=== PATIENT | female | born 1975 | race American Indian/Alaskan Native ===

== ENCOUNTER 2017-01-11 20:29 | Emergency (ER) | payer BC ==
--- NOTE | 2017-01-11 21:11 | Emergency Department Report ---
ED Lower Extremity HPI - General Chief Complaint: Extremity Problem,Nontraumatic Stated Complaint: GOUT Time Seen by Provider: 01/11/17 21:03 Source: patient, family Mode of arrival: Ambulatory Limitations: No Limitations - History of Present Illness Initial Comments: Patient complains of right great toe pain. On the 2016. Patient said she went to her primary care physician and had x-ray done and that she has gouty arthritis. She said she has been treated with gout medication to include Indocin , colcrys, and steroid injection. Pain is 9/10 and throbbing. She is on allopurinol for maintenance. Patient is morbidly obese and does not follow gout diet. She denies any injury and does not have h/o diabetes. BP is 183/110 and denies sob, cp. headache or visual difficulties. She take lisinopril and triaterene/hctz but only took lisinopril today. Denies fever or chills MD Complaint: other (Rt great toe pain and swelling) Onset/Timin -: month(s) Injury: Toes: Right (pain and swellin at rt great toe) Type of Injury: other (Gout flare) Place: home Severity: severe Severity scale (0 -10): 9 Improves With: rest Worsens With: weight bearing, movement, palpation Context: other (Gout) Associated Symptoms: swelling, ambulatory. denies: snap/pop sensation, numbness , tingling, unable to bear weight, able to partially bear weight Treatments Prior to Arrival: NSAIDS - Related Data Home Medications Medication Instructions Recorded Confirmed Last Taken Ferrous Sulfate [Iron Supplement 1 tab PO DAILY 03/08/14 01/11/17 01/11/17 325 Mg tab] Lisinopril 1 tab PO DAILY 03/08/14 01/11/17 01/11/17 Triamterene/Hydrochlorothiazid 1 tab PO DAILY 03/08/14 01/11/17 2 Days Ago [Triamterene-Hctz 75-50 mg] Previous Rx's Medication Instructions Recorded Last Taken Type Colchicine [Colcrys] 0.6 mg PO BID PRN #10 tab 01/11/17 Unknown Rx Indomethacin [Indocin] 25 mg PO Q8H PRN #12 capsule 01/11/17 Unknown Rx predniSONE [Deltasone] 50 mg PO QDAY #5 tab 01/11/17 Unknown Rx Allergies Allergy/AdvReac Type Severity Reaction Status Date / Time No Known Allergies Allergy Verified 03/08/14 14:53 ED Review of Systems ROS: Stated complaint: GOUT Other details as noted in HPI Comment: All other systems reviewed and negative Constitutional: denies: chills, fever Respiratory: no symptoms reported Cardiovascular: denies: chest pain, palpitations, edema, syncope Gastrointestinal: denies: nausea, vomiting Musculoskeletal: joint swelling, arthralgia. denies: back pain, myalgia Skin: denies: rash Neurological: denies: headache, weakness, numbness, paresthesias, confusion, abnormal gait, vertigo ED Past Medical Hx - Past Medical History Previous Medical History?: Yes Hx Hypertension: Yes (X4YRS) Hx Asthma: Yes Hx COPD: No Hx HIV: No - Surgical History Past Surgical History?: Yes Additional Surgical History: right ankle - Family History Family history: hypertension - Social History Smoking Status: Never Smoker Substance Use Type: None - Medications Home Medications: Home Medications Medication Instructions Recorded Confirmed Last Taken Type Ferrous Sulfate [Iron Supplement 1 tab PO DAILY 03/08/14 01/11/17 01/11/17 History 325 Mg tab] Lisinopril 1 tab PO DAILY 03/08/14 01/11/17 01/11/17 History Triamterene/Hydrochlorothiazid 1 tab PO DAILY 03/08/14 01/11/17 2 Days Ago History [Triamterene-Hctz 75-50 mg] Colchicine [Colcrys] 0.6 mg PO BID PRN #10 tab 01/11/17 Unknown Rx Indomethacin [Indocin] 25 mg PO Q8H PRN #12 capsule 01/11/17 Unknown Rx predniSONE [Deltasone] 50 mg PO QDAY #5 tab 01/11/17 Unknown Rx ED Physical Exam - General Limitations: No Limitations General appearance: alert, in no apparent distress - Head Head exam: Present: atraumatic, normocephalic, normal inspection - Neck Neck exam: Present: normal inspection, full ROM. Absent: tenderness, meningismus - Respiratory Respiratory exam: Present: normal lung sounds bilaterally. Absent: respiratory distress, chest wall tenderness - Cardiovascular Cardiovascular Exam: Present: regular rate, normal rhythm, normal heart sounds - GI/Abdominal GI/Abdominal exam: Present: soft, normal bowel sounds. Absent: distended, tenderness, guarding, rebound, rigid - Extremities Exam Extremities exam: Present: normal inspection, full ROM, normal capillary refill , joint swelling. Absent: pedal edema, calf tenderness - Expanded Lower Extremity Exam Right Hip exam: Present: normal inspection, full ROM, pelvic stability. Absent: tenderness, swelling, abrasion, laceration, ecchymosis, deformity, crepidus, dislocation, erythema, external rotation, internal rotation, shortening Upper Leg exam: Present: normal inspection, full ROM. Absent: tenderness, swelling, abrasion, laceration, ecchymosis, deformity, crepidus, dislocation, erythema Knee exam: Present: normal inspection, full ROM, full knee extension. Absent: tenderness, swelling, abrasion, laceration, ecchymosis, deformity, crepidus, dislocation, erythema, effusion, pain w/ pronation/supination Lower Leg exam: Present: normal inspection, full ROM. Absent: tenderness, swelling, abrasion, laceration, ecchymosis, deformity, crepidus, dislocation, erythema, palpable cord, Ken's sign Ankle exam: Present: normal inspection, full ROM. Absent: tenderness, swelling , abrasion, laceration, ecchymosis, deformity, crepidus, dislocation, erythema Foot/Toe exam: Present: full ROM, tenderness (Rt great toe), swelling (Rt great toe). Absent: normal inspection, abrasion, laceration, ecchymosis, deformity, crepidus, dislocation, erythema, amputation, puncture wound, foreign body, calcaneal tenderness, tenderness at base of 5th metatarsal, nail avulsion, subungual hematoma Neuro vascular tendon exam: Present: no vascular compromise, significant pain with passive ROM of distal joint. Absent: pulse deficit, abnormal cap refill, motor deficit, sensory deficit, tendon deficit, extremity cold to touch, pallor , abnormal 2-point discrimination, decreased fine/light touch, foot drop, peroneal nerve deficit Gait: Positive: observed and limited by pain - Back Exam Back exam: Present: normal inspection, full ROM. Absent: tenderness - Neurological Exam Neurological exam: Present: alert, oriented X3, normal gait, reflexes normal. Absent: motor sensory deficit - Psychiatric Psychiatric exam: Present: normal affect, normal mood - Skin Skin exam: Present: warm, dry, intact, normal color. Absent: rash ED Course Vital Signs 01/11/17 01/11/17 01/11/17 20:34 20:35 21:37 Temperature 99.2 F 99.2 F Pulse Rate 108 H 108 H Respiratory 22 22 Rate Blood Pressure 183/110 183/110 Blood Pressure 183/110 [Right] O2 Sat by Pulse 99 99 Oximetry 01/11/17 22:48 Temperature Pulse Rate 74 Respiratory 20 Rate Blood Pressure Blood Pressure 120/72 [Right] O2 Sat by Pulse 97 Oximetry - Reevaluation(s) Reevaluation #1: 01/11/17 21:52 Patient given colcrys 1.2 mg po, decadron 10 mg and dilaudid 1 mg im, zofran 8 mg ODT in ed. She was also given clonidine 0.2 mg po for elevated bp. Will recheck Reevaluation #2: 01/11/17 23:09 Patient vital signs are stabilized.Pain better at 3/10 ED Lower Extremity MDM - Medical Decision Making ED Course: Patient here for "flareup gout and had elevated bp. She was given colcrys 1.2 mg po, decadron 10 mg and dilaudid 1 mg im, zofran 8 mg ODT in ed. She was also given clonidine 0.2 mg po for elevated bp. Patient is better. I discussed with her she will need to follow up with her pcp in 2 days and to avoid foods high in purine. Patient discharge home with family with prescription for indocin and steroids. Critical care attestation.: If time is entered above; I have spent that time in minutes in the direct care of this critically ill patient, excluding procedure time. ED Disposition Clinical Impression: Elevated blood pressure reading in office with diagnosis of hypertension, Arthralgia of right foot Gout flare Qualifiers: Gout site: foot Gout etiology: unspecified cause Laterality: right Qualified Code(s): M10.9 - Gout, unspecified Disposition: DC-01 TO HOME OR SELFCARE Is pt being admited?: No Does the pt Need Aspirin: No Condition: Stable Instructions: Hypertension (ED), Arthralgia (ED), Acute Gouty Arthritis (ED), Low Purine Diet (ED) Additional Instructions: Please follow up with pcp in 2 days Take medication as pprescribes. Increase fluid intake Avoid food that is high in Purine. refe to discharge info paper work Prescriptions: Colchicine [Colcrys] 0.6 mg PO BID PRN #10 tab PRN Reason: GOUT PAIN Indomethacin [Indocin] 25 mg PO Q8H PRN #12 capsule PRN Reason: GOUT predniSONE [Deltasone] 50 mg PO QDAY #5 tab Referrals: PRIMARY CARE, [Primary Care Provider] - 01/13/17 Forms: Accompanied Note, Work/School Release Form(ED)
[2017-01-11] MEDS ORDERED: ZOFRAN ODT PO ONE (21:14)
[2017-01-11] MEDS ORDERED: DECADRON IM STA (21:14)
[2017-01-11] MEDS ORDERED: DILAUDID IV ONE (21:14)
[2017-01-11] MEDS ORDERED: CATAPRES PO ONE (21:14)
[2017-01-11] MEDS ORDERED: COLCRYS PO ONE (21:15)
[2017-01-11] MEDS ORDERED: DECADRON ONE (21:22)
[2017-01-11 22:48] VITALS: BP 120/72
== END 2017-01-11 23:26 | disposition home or self-care (01) ==
LOC: ED 20:29
DX: M10.071 Idiopathic gout, right ankle and foot (principal); I10 Essential (primary) hypertension; J45.909 Unspecified asthma, uncomplicated
CPT/HCPCS: 96372; 96374; 99283; J1100; J1170; Q0162

== ENCOUNTER 2017-02-11 19:15 | Emergency (ER) | payer BC ==
[2017-02-11] MEDS ORDERED: DECADRON IM ONE (23:19)
[2017-02-11] MEDS ORDERED: TORADOL IM ONE (23:19)
--- NOTE | 2017-02-11 23:22 | Emergency Department Report ---
HPI - General Chief Complaint: Extremity Injury, Lower Time Seen by Provider: 02/11/17 23:12 - HPI HPI: This is a 41-year-old female presents to ED complaining of right side and hip pain radiates to her thighs. Patient states this has been going on for the past year. Patient states it is December she was diagnosed with gout and was told she needed to take indomethacin and colchicine. Patient states she ran out of her medication. Patient denies any fever, joint swelling or pain other than specified. ED Past Medical Hx - Past Medical History Previous Medical History?: Yes Hx Hypertension: Yes (X4YRS) Hx Asthma: Yes Hx COPD: No Hx HIV: No - Surgical History Past Surgical History?: Yes Additional Surgical History: right ankle - Social History Smoking Status: Never Smoker Substance Use Type: Prescribed - Medications Home Medications: Home Medications Medication Instructions Recorded Confirmed Last Taken Type Ferrous Sulfate [Iron Supplement 1 tab PO DAILY 03/08/14 01/11/17 01/11/17 History 325 Mg tab] Lisinopril 1 tab PO DAILY 03/08/14 01/11/17 01/11/17 History Triamterene/Hydrochlorothiazid 1 tab PO DAILY 03/08/14 01/11/17 2 Days Ago History [Triamterene-Hctz 75-50 mg] Colchicine [Colcrys] 0.6 mg PO BID PRN #10 tab 01/11/17 Unknown Rx predniSONE [Deltasone] 50 mg PO QDAY #5 tab 01/11/17 Unknown Rx Indomethacin [Indocin] 25 mg PO Q8H PRN #12 capsule 02/11/17 Unknown Rx Meloxicam [Mobic] 15 mg PO DAILY #30 tablet 02/11/17 Unknown Rx traMADol [Ultram] 50 mg PO Q6HR PRN #20 tablet 02/11/17 Unknown Rx ED Review of Systems ROS: Stated complaint: NUMBNESS IN RT FOOT, PAIN IN BUTTOCK Other details as noted in HPI Constitutional: denies: chills, fever Eyes: denies: eye pain, eye discharge, vision change ENT: denies: ear pain, throat pain Respiratory: denies: cough, shortness of breath, wheezing Cardiovascular: denies: chest pain, palpitations Endocrine: no symptoms reported Gastrointestinal: denies: abdominal pain, nausea, diarrhea Genitourinary: denies: urgency, dysuria, discharge Musculoskeletal: back pain. denies: joint swelling, arthralgia Skin: denies: rash, lesions Neurological: denies: headache, weakness, paresthesias Psychiatric: denies: anxiety, depression Hematological/Lymphatic: denies: easy bleeding, easy bruising Physical Exam - Physical Exam Vital Signs: Vital Signs 02/11/17 19:47 Temperature 99 F Pulse Rate 113 H Respiratory 18 Rate Blood Pressure 166/101 Blood Pressure 166/101 [Right] O2 Sat by Pulse 100 Oximetry Physical Exam: GENERAL: Alert and oriented x3, no apparent distress, Normal Gait, atraumatic. HEAD: Head is normocephalic and a-traumatic. LUNGS: Symetrical with respiration, No wheezing, no rales or crackles, CTAB. HEART: S1, S2 present, regular rate and rhythm without murmur, no rubs, no gallops. Non tender to palpation ABDOMEN: No organomegaly was noted,Positive bowel sounds, soft, and non- distended. . Nontender to palpation on all Quadrants, NO CVA tenderness. EXTREMITIES/MUSCULOSKELETAL: No cyanosis, clubbing, rash, lesions or edema. Full ROM bilaterally. UE/LE Pulses 2+ bilaterally. LE and UE 5+ strength bilaterally, straight leg raise positive on the right side joints are intact, no edema no swelling of any of the joints in the lower extremities. No spinal tenderness NEUROLOGIC: The patient is cooperative with no focal neurologic deficits. Cranial nerves II through XII are grossly intact. Normal speech. Normal sensation in V1, V2, V3 bilaterally. Normal sensation in bilateral lower extremities, No loss of sensation, PSYCHIATRIC: Mood is congruent with affect, denies suicidal or homicidal ideations. SKIN: Warm and dry, No lesions, No ulceration or induration present. ED Course Vital Signs 02/11/17 19:47 Temperature 99 F Pulse Rate 113 H Respiratory 18 Rate Blood Pressure 166/101 Blood Pressure 166/101 [Right] O2 Sat by Pulse 100 Oximetry ED Medical Decision Making - Medical Decision Making 41-year-old female presents to ED with lumbar radiculopathy ED course: She received prednisone IM, Toradol and ED for pain Discussed patient to follow up with orthopedic and primary care physician. Patient states she took a blood pressure medication today and has no symptoms despite mildly elevated blood pressure Patient is in no acute distress or respiratory distress. Vital signs are normalized. Discussed the patient worsened symptoms. Return to the ED Critical care attestation.: If time is entered above; I have spent that time in minutes in the direct care of this critically ill patient, excluding procedure time. ED Disposition Clinical Impression: Lumbar radiculopathy Disposition: TO HOME OR SELFCARE Is pt being admited?: No Does the pt Need Aspirin: No Condition: Stable Instructions: Lumbar Radiculopathy (ED), Sciatica (ED) Prescriptions: Indomethacin [Indocin] 25 mg PO Q8H PRN #12 capsule PRN Reason: GOUT Meloxicam [Mobic] 15 mg PO DAILY #30 tablet traMADol [Ultram] 50 mg PO Q6HR PRN #20 tablet PRN Reason: Pain Referrals: PRIMARY CARE, [Primary Care Provider] - 3-5 Days PHILIPP CASTILLO MD [Staff Physician] - 3-5 Days MALKA CASPER MD [Staff Physician] - 3-5 Days Forms: Work/School Release Form Time of Disposition: 23:27
[2017-02-11 23:57] VITALS: BP 147/81
== END 2017-02-11 23:57 | disposition home or self-care (01) ==
LOC: ED 19:15
DX: M54.16 Radiculopathy, lumbar region (principal); I10 Essential (primary) hypertension; J45.909 Unspecified asthma, uncomplicated
CPT/HCPCS: 96372; 99282; J1100; J1885

== ENCOUNTER 2017-10-09 04:04 | Emergency (ER) | payer BC, OTHER ==
[2017-10-09 05:21] LABS: Hematocrit 36.2 % (30.3-42.9); Hemoglobin 11.7 gm/dl (10.1-14.3); Mean Corpuscular HGB Conc 32 % (30-34); Mean Corpuscular Volume 80 fl (79-97); Platelet Count 326 K/mm3 (140-440); Red Blood Count 4.53 M/mm3 (3.65-5.03); Red Cell Distribution Width 16.5 % (13.2-15.2)
[2017-10-09 05:22] LABS: Mean Corpuscular Hemoglobin 26 pg (28-32)
[2017-10-09 06:02] LABS: BUN/Creatinine Ratio 12; Blood Urea Nitrogen 11 mg/dL (7-17); Calcium 8.9 mg/dL (8.4-10.2); Hemolysis Index 25
[2017-10-09 06:26] LABS: Basophils # (Auto) 0.1 K/mm3 (0.0-0.1); Eosinophils # (Auto) 0.1 K/mm3 (0.0-0.4); Eosinophils % (Auto) 0.6 % (0.0-4.3); Monocytes # (Auto) 0.7 K/mm3 (0.0-0.8); Monocytes % (Auto) 5.2 % (0.0-7.3)
[2017-10-09 06:29] LABS: Lymphocytes # (Auto) 2.2 K/mm3 (1.2-5.4); Lymphocytes % (Auto) 15.9 % (13.4-35.0)
--- NOTE | 2017-10-09 07:01 | Emergency Department Report ---
ED General Adult HPI - General Chief complaint: Medical Clearance Stated complaint: MEDICAL CLEARANCE Time Seen by Provider: 10/09/17 07:00 Source: patient Mode of arrival: Stretcher Limitations: No Limitations - History of Present Illness Initial comments: Patient was sent from [facility] for evaluation of hypertension. The patient is already taking lisinopril. She arrives with transfer forms that state she has an anxiety disorder and paranoia. I do not see any specific blood pressure at [facility]. The patient's initial blood pressure was 160 systolic but the nurse reported to me on repeat it was about 185. Patient has no specific complaints. She had blood work sent prior to my arrival but not a urinalysis. Her white blood cell count was somewhat elevated 14.5. A urine specimen now pending. She is found to have a glucose of 150 which I assume was fasting. She did not take her lisinopril within the past 24 hours. -: Gradual Quality: other (no complaints of pain) Associated Symptoms: denies other symptoms - Related Data Home Medications Medication Instructions Recorded Confirmed Last Taken Ferrous Sulfate [Iron Supplement 1 tab PO DAILY 03/08/14 01/11/17 01/11/17 325 Mg tab] Lisinopril 1 tab PO DAILY 03/08/14 01/11/17 01/11/17 Triamterene/Hydrochlorothiazid 1 tab PO DAILY 03/08/14 01/11/17 2 Days Ago [Triamterene-Hctz 75-50 mg] ~01/09/17 Previous Rx's Medication Instructions Recorded Last Taken Type Colchicine [Colcrys] 0.6 mg PO BID PRN #10 tab 01/11/17 Unknown Rx predniSONE [Deltasone] 50 mg PO QDAY #5 tab 01/11/17 Unknown Rx Indomethacin [Indocin] 25 mg PO Q8H PRN #12 capsule 02/11/17 Unknown Rx Meloxicam [Mobic] 15 mg PO DAILY #30 tablet 02/11/17 Unknown Rx traMADol [Ultram] 50 mg PO Q6HR PRN #20 tablet 02/11/17 Unknown Rx Lisinopril [Zestril TAB] 5 mg PO QDAY #30 tablet 10/09/17 Unknown Rx Nitrofurantoin Monohyd/M-Cryst 100 mg PO BID #10 capsule 10/09/17 Unknown Rx [Macrobid 100 mg Capsule] metFORMIN [Glucophage] 500 mg PO BID #60 tablet 10/09/17 Unknown Rx Allergies Allergy/AdvReac Type Severity Reaction Status Date / Time No Known Allergies Allergy Verified 03/08/14 14:53 ED Review of Systems ROS: Stated complaint: MEDICAL CLEARANCE Other details as noted in HPI Constitutional: denies: chills, fever Eyes: denies: eye pain, eye discharge, vision change ENT: denies: ear pain, throat pain Respiratory: denies: cough, shortness of breath, wheezing Cardiovascular: denies: chest pain, palpitations Endocrine: no symptoms reported Gastrointestinal: denies: abdominal pain, nausea, diarrhea Genitourinary: denies: urgency, dysuria, discharge Musculoskeletal: denies: back pain, joint swelling, arthralgia Skin: denies: rash, lesions Neurological: denies: headache, weakness, paresthesias Psychiatric: anxiety, other (paranoia per the transfer record). denies: depression Hematological/Lymphatic: denies: easy bleeding, easy bruising ED Past Medical Hx - Past Medical History Hx Hypertension: Yes (X4YRS) Hx Asthma: Yes Hx COPD: No Hx HIV: No Additional medical history: MORBID OBESITY - Surgical History Additional Surgical History: right ankle - Social History Smoking Status: Never Smoker Substance Use Type: None - Medications Home Medications: Home Medications Medication Instructions Recorded Confirmed Last Taken Type Ferrous Sulfate [Iron Supplement 1 tab PO DAILY 03/08/14 01/11/17 01/11/17 History 325 Mg tab] Lisinopril 1 tab PO DAILY 03/08/14 01/11/17 01/11/17 History Triamterene/Hydrochlorothiazid 1 tab PO DAILY 03/08/14 01/11/17 2 Days Ago History [Triamterene-Hctz 75-50 mg] ~01/09/17 Colchicine [Colcrys] 0.6 mg PO BID PRN #10 tab 01/11/17 Unknown Rx predniSONE [Deltasone] 50 mg PO QDAY #5 tab 01/11/17 Unknown Rx Indomethacin [Indocin] 25 mg PO Q8H PRN #12 capsule 02/11/17 Unknown Rx Meloxicam [Mobic] 15 mg PO DAILY #30 tablet 02/11/17 Unknown Rx traMADol [Ultram] 50 mg PO Q6HR PRN #20 tablet 08/04/17 Unknown Rx Lisinopril [Zestril TAB] 5 mg PO QDAY #30 tablet 10/09/17 Unknown Rx Nitrofurantoin Monohyd/M-Cryst 100 mg PO BID #10 capsule 10/09/17 Unknown Rx [Macrobid 100 mg Capsule] metFORMIN [Glucophage] 500 mg PO BID #60 tablet 10/09/17 Unknown Rx ED Physical Exam - General Limitations: No Limitations General appearance: alert, in no apparent distress, obese - Head Head exam: Present: atraumatic, normocephalic - Eye Eye exam: Present: normal appearance. Absent: scleral icterus - ENT ENT exam: Present: mucous membranes moist - Neck Neck exam: Present: normal inspection - Respiratory Respiratory exam: Present: normal lung sounds bilaterally. Absent: respiratory distress - Cardiovascular Cardiovascular Exam: Present: regular rate, normal rhythm. Absent: systolic murmur, diastolic murmur, rubs, gallop - GI/Abdominal GI/Abdominal exam: Present: soft, normal bowel sounds. Absent: distended, tenderness, guarding, rebound, rigid - Extremities Exam Extremities exam: Present: normal inspection - Back Exam Back exam: Present: normal inspection - Neurological Exam Neurological exam: Present: alert, oriented X3, CN II-XII intact. Absent: motor sensory deficit - Psychiatric Psychiatric exam: Present: normal affect, normal mood - Skin Skin exam: Present: warm, dry, intact, normal color. Absent: rash ED Course Vital Signs 10/09/17 10/09/17 04:41 07:26 Temperature 98.3 F Pulse Rate 97 H Respiratory 20 Rate Blood Pressure 169/96 Blood Pressure 134/77 [Left] O2 Sat by Pulse 100 Oximetry ED Medical Decision Making - Lab Data Result diagrams: 10/09/17 04:57 10/09/17 04:57 Laboratory Results - last 24 hr 10/09/17 10/09/17 10/09/17 04:57 04:57 04:57 WBC RBC Hgb Hct MCV MCH MCHC RDW Plt Count Lymph % (Auto) Love % (Auto) Eos % (Auto) Baso % (Auto) Lymph # Love # Eos # Baso # Add Manual Diff Seg Neutrophils % Nucleated RBC % Seg Neutrophils # WBC Morphology Hypersegmented Neuts Hyposegmented Neuts Hypogranular Neuts Smudge Cells Toxic Granulation Toxic Vacuolation Dohle Bodies Pelger-Huet Anomaly Kumar Rods Platelet Estimate Clumped Platelets Plt Clumps, EDTA Large Platelets Giant Platelets Platelet Satelliting Plt Morphology Comment RBC Morphology Dimorphic RBCs Polychromasia Hypochromasia Poikilocytosis Anisocytosis Microcytosis Macrocytosis Spherocytes Pappenheimer Bodies Sickle Cells Target Cells Tear Drop Cells Ovalocytes Helmet Cells Delaney-Covel Bodies Grannis Rings [place] Cells Bite Cells Crenated Cell Elliptocytes Acanthocytes (Spur) Rouleaux Hemoglobin C Crystals Schistocytes Malaria parasites Christian Bodies Hem Pathologist Commnt Sodium 142 Potassium 3.6 Chloride 99.6 Carbon Dioxide 26 Anion Gap 20 BUN 11 Creatinine 0.9 Estimated GFR > 60 BUN/Creatinine Ratio 12 Glucose 146 H Calcium 8.9 HCG, Qual Salicylates < 0.3 L Acetaminophen < 5.0 L Plasma/Serum Alcohol 10/09/17 10/09/17 10/09/17 04:57 04:57 04:57 WBC 14.4 H RBC 4.53 Hgb 11.7 Hct 36.2 MCV 80 MCH 26 L MCHC 32 RDW 16.5 H Plt Count 326 Lymph % (Auto) 15.9 Love % (Auto) 5.2 Eos % (Auto) 0.6 Baso % (Auto) 1.0 Lymph # 2.2 Love # 0.7 Eos # 0.1 Baso # 0.1 Add Manual Diff Complete Seg Neutrophils % 77.3 H Nucleated RBC % Not Reportable Seg Neutrophils # 10.7 H WBC Morphology Not Reportable Hypersegmented Neuts Not Reportable Hyposegmented Neuts Not Reportable Hypogranular Neuts Not Reportable Smudge Cells Not Reportable Toxic Granulation Not Reportable Toxic Vacuolation Not Reportable Dohle Bodies Not Reportable Pelger-Huet Anomaly Not Reportable Kumar Rods Not Reportable Platelet Estimate Not Reportable Clumped Platelets Not Reportable Plt Clumps, EDTA Not Reportable Large Platelets Not Reportable Giant Platelets Not Reportable Platelet Satelliting Not Reportable Plt Morphology Comment Not Reportable RBC Morphology Not Reportable Dimorphic RBCs Not Reportable Polychromasia Not Reportable Hypochromasia Not Reportable Poikilocytosis Not Reportable Anisocytosis Not Reportable Microcytosis Not Reportable Macrocytosis Not Reportable Spherocytes Not Reportable Pappenheimer Bodies Not Reportable Sickle Cells Not Reportable Target Cells Not Reportable Tear Drop Cells Not Reportable Ovalocytes Not Reportable Helmet Cells Not Reportable Delaney-[place] Bodies Not Reportable Grannis Rings Not Reportable Ibeth Cells Not Reportable Bite Cells Not Reportable Crenated Cell Not Reportable Elliptocytes Not Reportable Acanthocytes (Spur) Not Reportable Rouleaux Not Reportable Hemoglobin C Crystals Not Reportable Schistocytes Not Reportable Malaria parasites Not Reportable Christian Bodies Not Reportable Hem Pathologist Commnt No Sodium Potassium Chloride Carbon Dioxide Anion Gap BUN Creatinine Estimated GFR BUN/Creatinine Ratio Glucose Calcium HCG, Qual Negative Salicylates Acetaminophen Plasma/Serum Alcohol < 0.01 Laboratory Results - last 24 hr 10/09/17 10/09/17 10/09/17 04:57 04:57 04:57 WBC RBC Hgb Hct MCV MCH MCHC RDW Plt Count Lymph % (Auto) Love % (Auto) Eos % (Auto) Baso % (Auto) Lymph # Love # Eos # Baso # Add Manual Diff Seg Neutrophils % Nucleated RBC % Seg Neutrophils # WBC Morphology Hypersegmented Neuts Hyposegmented Neuts Hypogranular Neuts Smudge Cells Toxic Granulation Toxic Vacuolation Dohle Bodies Pelger-Huet Anomaly Kumar Rods Platelet Estimate Clumped Platelets Plt Clumps, EDTA Large Platelets Giant Platelets Platelet Satelliting Plt Morphology Comment RBC Morphology Dimorphic RBCs Polychromasia Hypochromasia Poikilocytosis Anisocytosis Microcytosis Macrocytosis Spherocytes Pappenheimer Bodies Sickle Cells Target Cells Tear Drop Cells Ovalocytes Helmet Cells Delaney-Covel Bodies Grannis Rings Ibeth Cells Bite Cells Crenated Cell Elliptocytes Acanthocytes (Spur) Rouleaux Hemoglobin C Crystals Schistocytes Malaria parasites Christian Bodies Hem Pathologist Commnt Sodium 142 Potassium 3.6 Chloride 99.6 Carbon Dioxide 26 Anion Gap 20 BUN 11 Creatinine 0.9 Estimated GFR > 60 BUN/Creatinine Ratio 12 Glucose 146 H Calcium 8.9 HCG, Qual Urine Color Urine Turbidity Urine pH Ur Specific [place] Urine Protein Urine Glucose (UA) Urine Ketones Urine Blood Urine Nitrite Urine Bilirubin Urine Urobilinogen Ur Leukocyte Esterase Urine WBC (Auto) Urine RBC (Auto) U Epithel Cells (Auto) Urine Bacteria (Auto) Urine Mucus Salicylates < 0.3 L Acetaminophen < 5.0 L Plasma/Serum Alcohol 10/09/17 10/09/17 10/09/17 04:57 04:57 04:57 WBC 14.4 H RBC 4.53 Hgb 11.7 Hct 36.2 MCV 80 MCH 26 L MCHC 32 RDW 16.5 H Plt Count 326 Lymph % (Auto) 15.9 Love % (Auto) 5.2 Eos % (Auto) 0.6 Baso % (Auto) 1.0 Lymph # 2.2 Love # 0.7 Eos # 0.1 Baso # 0.1 Add Manual Diff Complete Seg Neutrophils % 77.3 H Nucleated RBC % Not Reportable Seg Neutrophils # 10.7 H WBC Morphology Not Reportable Hypersegmented Neuts Not Reportable Hyposegmented Neuts Not Reportable Hypogranular Neuts Not Reportable Smudge Cells Not Reportable Toxic Granulation Not Reportable Toxic Vacuolation Not Reportable Dohle Bodies Not Reportable Pelger-Huet Anomaly Not Reportable Kumar Rods Not Reportable Platelet Estimate Not Reportable Clumped Platelets Not Reportable Plt Clumps, EDTA Not Reportable Large Platelets Not Reportable Giant Platelets Not Reportable Platelet Satelliting Not Reportable Plt Morphology Comment Not Reportable RBC Morphology Not Reportable Dimorphic RBCs Not Reportable Polychromasia Not Reportable Hypochromasia Not Reportable Poikilocytosis Not Reportable Anisocytosis Not Reportable Microcytosis Not Reportable Macrocytosis Not Reportable Spherocytes Not Reportable Pappenheimer Bodies Not Reportable Sickle Cells Not Reportable Target Cells Not Reportable Tear Drop Cells Not Reportable Ovalocytes Not Reportable Helmet Cells Not Reportable Delaney-[place] Bodies Not Reportable Grannis Rings Not Reportable Ibeth Cells Not Reportable Bite Cells Not Reportable Crenated Cell Not Reportable Elliptocytes Not Reportable Acanthocytes (Spur) Not Reportable Rouleaux Not Reportable Hemoglobin C Crystals Not Reportable Schistocytes Not Reportable Malaria parasites Not Reportable Christian Bodies Not Reportable Hem Pathologist Commnt No Sodium Potassium Chloride Carbon Dioxide Anion Gap BUN Creatinine Estimated GFR BUN/Creatinine Ratio Glucose Calcium HCG, Qual Negative Urine Color Urine Turbidity Urine pH Ur Specific [place] Urine Protein Urine Glucose (UA) Urine Ketones Urine Blood Urine Nitrite Urine Bilirubin Urine Urobilinogen Ur Leukocyte Esterase Urine WBC (Auto) Urine RBC (Auto) U Epithel Cells (Auto) Urine Bacteria (Auto) Urine Mucus Salicylates Acetaminophen Plasma/Serum Alcohol < 0.01 10/09/17 07:26 WBC RBC Hgb Hct MCV MCH MCHC RDW Plt Count Lymph % (Auto) Love % (Auto) Eos % (Auto) Baso % (Auto) Lymph # Love # Eos # Baso # Add Manual Diff Seg Neutrophils % Nucleated RBC % Seg Neutrophils # WBC Morphology Hypersegmented Neuts Hyposegmented Neuts Hypogranular Neuts Smudge Cells Toxic Granulation Toxic Vacuolation Dohle Bodies Pelger-Huet Anomaly Kumar Rods Platelet Estimate Clumped Platelets Plt Clumps, EDTA Large Platelets Giant Platelets Platelet Satelliting Plt Morphology Comment RBC Morphology Dimorphic RBCs Polychromasia Hypochromasia Poikilocytosis Anisocytosis Microcytosis Macrocytosis Spherocytes Pappenheimer Bodies Sickle Cells Target Cells Tear Drop Cells Ovalocytes Helmet Cells Delaney-[place]vel Bodies Grannis Rings Ibeth Cells Bite Cells Crenated Cell Elliptocytes Acanthocytes (Spur) Rouleaux Hemoglobin C Crystals Schistocytes Malaria parasites Christian Bodies Hem Pathologist Commnt Sodium Potassium Chloride Carbon Dioxide Anion Gap BUN Creatinine Estimated GFR BUN/Creatinine Ratio Glucose Calcium HCG, Qual Urine Color Yellow Urine Turbidity Clear Urine pH 5.0 Ur Specific [place] 1.026 Urine Protein 30 mg/dl Urine Glucose (UA) Neg Urine Ketones Tr Urine Blood Neg Urine Nitrite Neg Urine Bilirubin Neg Urine Urobilinogen < 2.0 Ur Leukocyte Esterase Sm Urine WBC (Auto) 8.0 H Urine RBC (Auto) 7.0 U Epithel Cells (Auto) 8.0 Urine Bacteria (Auto) 1+ Urine Mucus 1+ Salicylates Acetaminophen Plasma/Serum Alcohol Critical care attestation.: If time is entered above; I have spent that time in minutes in the direct care of this critically ill patient, excluding procedure time. ED Disposition Clinical Impression: Labile hypertension, Psychiatric disorder UTI (urinary tract infection) Qualifiers: Urinary tract infection type: site unspecified Hematuria presence: without hematuria Qualified Code(s): N39.0 - Urinary tract infection, site not specified Type 2 diabetes mellitus Qualifiers: Diabetes mellitus intermediate accountant insulin use: without intermediate accountant use Diabetes mellitus complication status: without complication Qualified Code(s): E11.9 - Type 2 diabetes mellitus without complications Disposition: DC- TO HOME OR SELFCARE Is pt being admited?: No Does the pt Need Aspirin: No Condition: Stable Instructions: Diabetes Mellitus Type 2 in Adults (ED), Hypertension (ED), Urinary Tract Infection in Women (ED) Additional Instructions: Follow-up on your urine culture which will be ready in 2-3 days. Rx as directed. Prescriptions: Lisinopril [Zestril TAB] 5 mg PO QDAY #30 tablet metFORMIN [Glucophage] 500 mg PO BID #60 tablet Nitrofurantoin Monohyd/M-Cryst [Macrobid 100 mg Capsule] 100 mg PO BID #10 capsule Referrals: DANIELLE HIGHTOWER MD [Primary Care Provider] - 2-3 Days airplane flight attendant supervisor, katiana [place] [Other] - 3-5 Days Time of Disposition: 08:17
[2017-10-09] MEDS ORDERED: ZOFRAN ODT PO ONE (07:12)
[2017-10-09] MEDS ORDERED: DILAUDID IM ONE (07:12)
[2017-10-09] MEDS ORDERED: BENADRYL PO ONE (07:12)
[2017-10-09 07:27] VITALS: BP 134/77
[2017-10-09] MEDS ORDERED: TESSALON PERLES PO ONE (07:30)
[2017-10-09 08:04] LABS: Bacteria,Urine 1+ /HPF (Negative); Bilirubin,Urine NEG (Negative); Blood,Urine NEG (Negative); Color,Urine Yellow (Yellow); Mucus,Urine 1+ /HPF; Urobilinogen,Urine < 2.0 mg/dL (<2.0)
[2017-10-09 08:24] LABS: Amphetamine Screen,Urine PRESUMPTIVE NEGATIVE; Benzodiazepines Screen,Urine PRESUMPTIVE NEGATIVE; Cannabinoid Screen,Urine PRESUMPTIVE NEGATIVE; Cocaine Screen,Urine PRESUMPTIVE NEGATIVE; Methadone Screen,Urine PRESUMPTIVE NEGATIVE; Opiate Screen,Urine PRESUMPTIVE NEGATIVE
[2017-10-09] MEDS ORDERED: ULTRAM ONE (08:34)
[2017-10-09] MEDS ORDERED: ULTRAM PO ONE (08:39)
== END 2017-10-09 08:30 | disposition home or self-care (01) ==
LOC: ED 04:04
DX: I10 Essential (primary) hypertension (principal); N39.0 Urinary tract infection, site not specified; E11.9 Type 2 diabetes mellitus without complications; F41.9 Anxiety disorder, unspecified
CPT/HCPCS: 36415; 80048; 80307; 81001; 84703; 85007; 85025; 99283; G0480; 80320

== ENCOUNTER 2017-10-09 14:51 | Emergency (ER) | payer OTHER ==
[2017-10-09 15:22] VITALS: BP 159/93
== END 2017-10-09 15:21 | disposition left against medical advice (07) ==
LOC: ED 14:51
DX: I10 Essential (primary) hypertension (principal); Z53.21 Procedure and treatment not carried out due to patient leaving prior to being seen by health care provider

== ENCOUNTER 2018-01-13 08:19 | Day surgery (SDC) | payer OTHER ==
--- NOTE | 2018-01-13 09:51 | Anesthesia Day of Surgery ---
Anesthesia Day of Surgery - Day of Surgery Patient Examined: Yes Patient H&P Reviewed: Yes Patient is NPO: Yes
--- NOTE | 2018-01-13 09:53 | Anesthesia Consultation ---
Anesthesia Consult and Med Hx Date of service: 01/13/18 - Airway Anesthetic Teeth Evaluation: Chipped ROM Head & Neck: Adequate Mental/Hyoid Distance: Adequate Mallampati Class: Class III Intubation Access Assessment: Possibly Difficult - Pulmonary Exam CTA: Yes - Cardiac Exam Cardiac Exam: RRR - Pre-Operative Health Status ASA Pre-Surgery Classification: ASA3 Proposed Anesthetic Plan: General, MAC (Morbid Obesity BMI greater than 50. Took ativan po this am. NPO. denies CHF, denies DM) - Pulmonary Hx Smoking: No Hx Asthma: Yes COPD: No Hx Pneumonia: No Hx Sleep Apnea: No - Cardiovascular System Hx Hypertension: Yes (X4YRS) - Central Nervous System Hx Psychiatric Problems: Yes - Hematic Hx Anemia: Yes - Other Systems Hx Substance Use: No Hx Cancer: No
[2018-01-13] MEDS ORDERED: HURRICAINE ONE 20% TOPICAL SPRAY MM (09:59)
[2018-01-13] MEDS ORDERED: NACL 0.9% 500 ML 500 ML ONE (10:00)
[2018-01-13] MEDS ORDERED: DIPRIVAN 10 MG/ML IV ONE ×2 (10:10)
[2018-01-13] MEDS ORDERED: XYLOCAINE MPF 2% ONE (10:10)
[2018-01-13] MEDS ORDERED: HURRICAINE ONE 20% TOPICAL SPRAY MM NR (10:17)
[2018-01-13] MEDS ORDERED: NACL 0.9% 500 ML 500 ML IV SCH (11:00)
--- NOTE | 2018-01-13 11:35 | Short Stay Summary ---
Short Stay Documentation Date of service: 01/13/18 - History H&P: obtained from office - Allergies and Medications Current Medications: Allergies hydrocodone Allergy (Unverified 01/13/18 08:20) Nausea AND VOMITING Home Medications Medication Instructions Recorded Confirmed Last Taken Type Ferrous Sulfate [Iron Supplement 1 tab PO DAILY 03/08/14 01/13/18 01/12/18 History 325 Mg tab] Lisinopril 1 tab PO DAILY 03/08/14 01/11/17 01/11/17 History Colchicine [Colcrys] 0.6 mg PO BID PRN #10 tab 01/11/17 01/13/18 Unknown Rx Indomethacin [Indocin] 25 mg PO Q8H PRN #12 capsule 02/11/17 01/13/18 Unknown Rx Meloxicam [Mobic] 15 mg PO DAILY #30 tablet 02/11/17 Unknown Rx Nitrofurantoin Monohyd/M-Cryst 100 mg PO BID #10 capsule 10/09/17 Unknown Rx [Macrobid 100 mg Capsule] LORazepam [Ativan] 0.5 mg PO BID 01/13/18 01/13/18 01/13/18 09:30 History Lisinopril [Zestril TAB] 40 mg PO QDAY 01/13/18 01/13/18 01/12/18 History Active Medications Benzocaine (Hurricaine One 20% Topical [place]) 3 spray MM PREOP NR Stop: 01/13/18 12:00 Last Admin: 01/13/18 10:17 Dose: 3 spray Sodium Chloride (Nacl 0.9% 500 Ml) 500 mls @ 50 mls/hr IV DIRECT TUSHAR Last Admin: 01/13/18 10:20 Dose: 50 mls/hr - Physical exam General appearance: no acute distress Integumentary: no rash HEENT: Atraumatic Lungs: Clear to auscultation Breasts: deferred Heart: Regular rate Gastrointestinal: normal Female Genitourinary: deferred Rectal Exam: deferred Extremities: no ischemia Neurological: Normal gait - Brief post op/procedure progress note Date of procedure: 01/13/18 Pre-op diagnosis: Inconclusive TTE Post-op diagnosis: same Procedure: NILES Anesthesia: MAC Findings: See report Surgeon: JO MICHEL Estimated blood loss: none Pathology: none Condition: stable - Hospital course Hospital course: Uneventful - Disposition Condition at discharge: Good Disposition: DC-01 TO HOME OR SELFCARE Short Stay Discharge Plan Activity: advance as tolerated Weight Bearing Status: Weight Bear as Tolerated Diet: low fat, low cholesterol, low salt Follow up with: FEDERICO AGUILAR DO [Primary Care Provider] - 7 Days KEY POOL MD [Staff Physician] - 7 Days Forms: NILES Discharge Form
[2018-01-13 11:49] VITALS: BP 141/65
--- NOTE | 2018-01-13 12:24 | Post Anesthesia Evaluation ---
- Post Anesthesia Evaluation Patient Participated: Yes Airway Patent: Yes Stable Respiratory Function: Yes Nausea/Vomiting: No Temp > 96.8F: Yes Pain Manageable: Yes Adequeate Hydration: Yes Anesthesia Complications: No
== END 2018-01-13 12:45 | disposition home or self-care (01) ==
LOC: CATHLABREC 08:19 → EDSTATUS 10:30 → CATHLABREC 12:45
PROVIDERS: ATTEND Internal Medicine Cardiovascular Disease
DX: I34.0 Nonrheumatic mitral (valve) insufficiency (principal); I36.1 Nonrheumatic tricuspid (valve) insufficiency; I10 Essential (primary) hypertension; J45.909 Unspecified asthma, uncomplicated; E66.01 Morbid (severe) obesity due to excess calories; Z88.5 Allergy status to narcotic agent
CPT/HCPCS: 93005; 93010; 93312; 93320; 93325; J2704; J7040